=== PATIENT | female | born 1975 | race Caucasian/White ===

== ENCOUNTER 2016-12-11 02:01 | Emergency (ER) | payer OTHER ==
--- NOTE | ~2016-12-11 | CR21 ---
[facility]. [facility] A Service of [facility] & [facility] RADIOLOGY TEXT RESULTS PATIENT: ARY RODRIGUEZ LOCATION: SED : 77 UNIT #: [id number] AGE: [address]: Jp Hassan MD SEX: F ORDER DR: [id number] [place] [address] [id number] E MR#: [id number] Acc #: [id number] NAME: ARY RODRIGUEZ : 1975 SEX: F STUDY DATE/TIME: 12/11/2016 01:49 UNIT: SED ROOM: STUDY DESCRIPTION: CR Ankle Min 3 Views Rt Attending Physician: Jp Hassan M.D. Ordering Physician: Jp Hassan M.D. Primary Care Physician: Alejandro Gama M.D. MEDICAL IMAGING REPORT This report is preliminary unless electronic signature is present. EXAM Right ankle, 12/11 at 01:49 hours INDICATIONS Ankle pain all over after rolling injury this evening. FINDINGS AP, lateral, and oblique projections of the ankle show satisfactory integrity of the joint mortise with a smooth articular surface. There is no identifiable fracture, dislocation, or radiopaque foreign body. IMPRESSION Normal right ankle. Dictated by... Terrence Broussard Jr., M.D. THIS IS AN ELECTRONICALLY VERIFIED REPORT Terrence Broussard Jr., M.D. at 12/11/2016 11:15 AM [place] NENA/emerson TD: 12/11/2016 08:36 JOB #: [id number] MEDICAL IMAGING REPORT Page 1 of 1
--- NOTE | ~2016-12-11 | CR127 ---
[facility] A Service of [facility] & [facility] RADIOLOGY TEXT RESULTS PATIENT: ARY RODRIGUEZ LOCATION: SED : [birth year] UNIT #: [id number] AGE: [address]: Jp Hassan MD SEX: F ORDER DR: [id number] [place] [address] [id number] E MR#: [id number] Acc #: [id number] NAME: ARY RODRIGUEZ : 1975 SEX: F STUDY DATE/TIME: 12/11/2016 02:36 UNIT: SED ROOM: STUDY DESCRIPTION: CR Foot Complete Min 3 View Rt Attending Physician: Jp Hassan M.D. Ordering Physician: Jp Hassan M.D. Primary Care Physician: Alejandro Gama M.D. MEDICAL IMAGING REPORT This report is preliminary unless electronic signature is present. EXAM Right foot, 12/11 at 02:36 INDICATION The patient had injury tonight at dinner. Rolled ankle. Acute onset pain and swelling. FINDINGS The tarsal, metatarsal, and phalangeal elements are all anatomically normal in position and alignment. There are no articular defects. No fractures or radiopaque foreign bodies in the soft tissues are apparent. IMPRESSION Normal right foot. Dictated by... Terrence Broussard Jr., M.D. THIS IS AN ELECTRONICALLY VERIFIED REPORT Terrence Broussard Jr., M.D. at 12/11/2016 11:15 AM [place] NENA/emerson TD: 12/11/2016 08:24 JOB #: [id number] MEDICAL IMAGING REPORT Page 1 of 1
[~2016-12-11 02:01] MED LIST: ALKA-SELTZER P1 EACH; ALLEGRA PO; ALPRAZOLAM PO; BACTRIM DS TABL1 TA1 PO; BENZONATATE PO; BROMFED DM COU118 ML PO; CELEXA; EXCEDRIN MIGRAI1 TA1 PO; ORTHO TRI-7 DAYSX 3 PO; PERCOCET5/325 PO; PHENERGAN25 MG PO; PRENATAL1 TA1 PO; PROMETHAZINE W120 ML PO; REMERON45 MG PO; TOPAMAX PO; TOPROL XL PO; TYLENOL #3 PO; VOLTAREN75 MG PO; ZOLOFT PO; ZOLOFT100 MG PO; ZOLOFT50 MG PO; [UNRECOGNIZED DRUG - OTHER]
== END 2016-12-11 03:29 | disposition home or self-care (01) ==
LOC: SED 02:01
DX: S93.401A Sprain of unspecified ligament of right ankle, initial encounter (principal); S93.601A Unspecified sprain of right foot, initial encounter; F17.200 Nicotine dependence, unspecified, uncomplicated; Z88.0 Allergy status to penicillin; F41.9 Anxiety disorder, unspecified; X50.1XXA Overexertion from prolonged static or awkward postures, initial encounter; Y92.511 Restaurant or cafe as the place of occurrence of the external cause
CPT/HCPCS: 29540; 73610; 73630; 99283